=== PATIENT | male | born 1985 | race Hispanic/Latino ===

== ENCOUNTER 2022-07-03 09:55 | Emergency (ER) | payer OTHER ==
--- OUTSIDE RECORDS SUMMARY | 2022-07-03 09:59 | XMS REPORT | Continuity of Care Document ---
:1985 Author Organization [facility] t Address [address] [place] [address] Care Team Providers Name Role Phone BROWN JIMENEZ Primary Care Physician Unavailable RJ ARRIAGA Attending Clinician Unavailable NASRIN MACK Attending Clinician Unavailable EVERARDO BEE Attending Clinician Unavailable RJ ARRIAGA Admitting Clinician Unavailable EVERARDO BEE Admitting Clinician Unavailable Payers Payer Name Policy Type Policy Number Effective Date Expiration Date [facility] PPO [id number] Problems Condition Condition Condition Status Onset Resolution Last Treating Co mments Source Name Details Category Date Date Treatment Clinician Date No known No known Disease Metho di active active st problems problems Hospit a l Allergies, Adverse Reactions, Alerts Allergy Allergy Status Severity Reaction(s) Onset Inactive Treating Comm ents Source Name Type Date Date Clinician NO KNOWN Drug Active Univers ALLERGIE Class it[facility] of S [facility] Social History Social Habit Start Date Stop Date Quantity Comments Source History of Occasional tobacco Method ist tobacco use smoker Hospital Alcohol intake 2019-07-24 2019-07-24 Current drinker of [facility] 00:00:00 00:00:00 alcohol (finding) Hospita l Tobacco use and 2019-07-21 2019-07-21 Smokeless tobacco [facility] exposure 00:00:00 00:00:00 non-user Hospital Sex Assigned At [birth year] Scientologist 00:00:00 00:00:00 Hospital Smoking Status Start Date Stop Date Source Occasional tobacco smoker 2019-07-21 00:00:00 [facility] Medications Ordered Filled Start Stop Current Ordering Indication Dosage Frequency Signature Comments Components Source Medication Medication Date Date Medication? Clinician (SIG) Name Name fexofenadin 2018-08 Yes 180mg QD Take 180 M ethodi e (JADYN) 2-[address] 180 MG 16:50: mouth Hospita tablet 46 daily. l omeprazole 2018-08 Yes 20mg QD Take 20 mg M ethodi (PriLOSEC) 2-[address] 20 MG 16:50: daily. Hospita capsule 46 l amoxicillin 2018-08 Yes 1{tbl} Q.5D Take 1 [facility] -pot 2-[address] clavulanate 16:50: mouth 2 Hos cedric (AUGMENTIN) 46 (two) l 875-125 mg times a per tablet day. Procedures This patient has no known procedures. Encounters Start End Encounter Admission Attending Care Care Encounter Source Date/Time Date/Time Type Type Clinicians Facility Department ID 2021-01-17 2021-01-17 Outpatient R [facility] [id number] Univers 13:00:00 13:00:00 [facility] 2020-08-05 2020-08-05 Emergency X [facility] ERT [id number] Univers 06:17:00 07:26:00 RJ [facility] 2020-02-24 2020-02-24 [facility] [id number] Univers 17:00:00 17:00:00 NASRIN [facility] 2019-07-22 2019-07-22 [id number] [place] 00:00:00 00:00:00 EVERARDO [address] Results This patient has no known results.
[2022-07-03] MEDS ORDERED: KETOROLAC 30 MG/ML INJ ONE (10:28)
[2022-07-03] MEDS ORDERED: dexAMETHasone 10 MG/ML VIAL ONE (10:28)
[2022-07-03] MEDS ORDERED: HYDROCODONE/APAP 7.5/325 MG TAB ONE (10:28)
[2022-07-03] MEDS ORDERED: DIAZEPAM 5 MG TABLET ONE (10:28)
--- NOTE | 2022-07-03 11:00 | EDPHYS ---
Physician Documentation [facility] Name: Jose Adams Age: 37 yrs Sex: Male : 1985 Arrival Date: 07/03/2022 Time: 09:59 Bed 9 Private MD: ED Physician Camilo Andres HPI: 07/03 10:26 This 37 yrs old Male presents to ER via Ambulatory with complaints of Stiff kb Neck, Stiff Shoulder. 10:26 The patient or guardian complains of pain, that is acute, tenderness. The symptoms are kb located on the left posterior aspect of neck. Onset: The symptoms/episode began/occurred 2 day(s) ago, and became worse this morning. Context: The problem was sustained at home, The neck injury/problem resulted from from unknown cause. Associated signs and symptoms: The patient has no apparent associated signs or symptoms, The patient denies any alcohol use. The patient is not apparently intoxicated. No neurological symptoms were experienced by the patient prior to arrival in the emergency department. The pain radiates to the left arm. Modifying factors: The symptoms are alleviated by nothing. the symptoms are aggravated by movement, pressure. Severity of symptoms: At their worst the symptoms were moderate, in the emergency department the symptoms are unchanged. The patient has not experienced similar symptoms in the past. The patient has not recently seen a physician. Historical: - Allergies: 10:14 No Known Allergies; vg1 - Home Meds: 10:14 None [Active]; vg1 - PMHx: 10:14 None; vg1 - PSHx: 10:14 Rhinoplasty; vg1 - Immunization history:: Client reports having NOT received the Covid vaccine. - Social history:: Smoking status: Patient denies any tobacco usage or history of. ROS: 10:58 Constitutional: Negative for fever, chills, and weight loss. kb 10:58 Neck: Positive for pain with movement, pain at rest, tenderness. 10:58 All other systems are negative. Exam: 10:58 Constitutional: This is a well developed, well nourished patient who is awake, alert, kb and in no acute distress. Head/Face: Normocephalic, atraumatic. ENT: Moist Mucous membranes Cardiovascular: Regular rate and rhythm with a normal S1 and S2. No gallops, murmurs, or rubs. No pulse deficits. Respiratory: Respirations even and unlabored. No increased work of breathing. Talking in full sentences Abdomen/GI: Soft, non-tender. No distention Skin: Warm, dry with normal turgor. Normal color. MS/ Extremity: Pulses equal, no cyanosis. Neurovascular intact. Full, normal range of motion. Neuro: Awake and alert, GCS 15, oriented to person, place, time, and situation. Moves all extremities. Normal gait. Psych: Awake, alert, with orientation to person, place and time. Behavior, mood, and affect are within normal limits. 10:58 Neck: External neck: swelling, that is mild, of the left posterior aspect of neck, tenderness, that is moderate, of the left posterior aspect of neck, C-spine: appears grossly normal, ROM/movement: pain, that is severe, with any movement. Vital Signs: 10:13 BP 131 / 71; Pulse 56; Resp 20; Temp 97.9; Pulse Ox 99% ; Weight 89.81 kg; Height 5 ft. vg1 10 in. (177.80 cm); Pain 10/10; 10:13 Body Mass Index 28.41 (89.81 kg, 177.80 cm) vg1 MDM: 10:11 Patient medically screened. kb 10:28 Data reviewed: vital signs, nurses notes. Data interpreted: Pulse oximetry: on room air kb is 99 %. Interpretation: normal. Counseling: I had a detailed discussion with the patient and/or guardian regarding: the historical points, exam findings, and any diagnostic results supporting the discharge/admit diagnosis, the need for outpatient follow up, a family practitioner, to return to the emergency department if symptoms worsen or persist or if there are any questions or concerns that arise at home. Administered Medications: 10:37 Drug: Valium (diazepam) 5 mg Route: PO; ld1 10:38 Drug: Decadron (dexamethasone) 10 mg Route: IM; Site: left deltoid; ld1 10:38 Drug: [address] (HYDROcodone-acetaminophen) (7.5 mg-325 mg) 1 tabs Route: PO; ld1 10:38 Drug: Ketorolac 30 mg Route: IM; Site: right deltoid; ld1 Disposition: 11:42 PA/BIOMEDICAL ENGINEER's history reviewed, patient interviewed, and examined. I agree with assessment jr11 and care plan and confirm the diagnosis (es) above. Attestation: The patient's history, exam findings, diagnostics, and a summary of any interventions or procedures was reviewed in detail with Francisca GARCIA. Disposition Summary: 07/03/22 10:59 Discharge Ordered Location: Home kb Condition: Stable kb Diagnosis - Radiculopathy, cervical region kb Followup: kb - With: Private Physician - When: 2 - 3 days - Reason: Recheck today's complaints, Continuance of care, Re-evaluation by your physician Followup: kb - With: Emergency Department - When: As needed - Reason: Worsening of condition Discharge Instructions: - Discharge Summary Sheet kb - Cervical Radiculopathy, [id number] kb Forms: - Medication Reconciliation Form kb - Thank You Letter kb - Antibiotic Education kb - Prescription Opioid Use kb Prescriptions: - Cyclobenzaprine 10 mg Oral Tablet - take 1 tablet by ORAL route every 8 hours As needed; 15 tablet; Refills: 0, kb Product Selection Permitted - Diclofenac Sodium 75 mg Oral tablet,delayed release (DR/EC) - take 1 tablet by ORAL route 2 times per day As needed; 30 tablet; Refills: 0, kb Product Selection Permitted Signatures: Francisca Garcia FNP-C FNP-Shahla Burrell RN RN vg1 Tiffanie Garrido RN RN ld1 Camilo Andres MD MD jr11
--- NOTE | 2022-07-03 11:00 | ER ---
Nurse's Notes [facility] [address] Name: Jose Adams Age: 37 yrs Sex: Male : 1985 Arrival Date: 07/03/2022 Time: 09:59 Bed 9 Private MD: Diagnosis: Radiculopathy, cervical region Presentation: 07/03 10:13 Chief complaint: Patient states: Left sided neck pain that radiates to the Left arm x2 vg1 days that became worse this morning. Denies any injuries. Coronavirus screen: Vaccine status: Patient reports being unvaccinated. Client denies travel out of the [place] in the last 14 days. Ebola Screen: Patient negative for fever greater than or equal to 101.5 degrees Fahrenheit, and additional compatible Ebola Virus Disease symptoms. Initial Sepsis Screen: Does the patient meet any 2 criteria? No. Patient's initial sepsis screen is negative. Does the patient have a suspected source of infection? No. Patient's initial sepsis screen is negative. Risk Assessment: Do you want to hurt yourself or someone else? Patient reports no desire to harm self or others. Onset of symptoms was July 01, 2022. 10:13 Method Of Arrival: Ambulatory vg1 10:13 Acuity: PANKAJ 4 vg1 Triage Assessment: 10:14 General: Appears uncomfortable, Behavior is calm, cooperative. Pain: Complains of pain vg1 in neck Pain currently is 10 out of 10 on a pain scale. Neuro: Level of Consciousness is awake, alert, obeys commands, Oriented to person, place, time, situation. Historical: - Allergies: 10:14 No Known Allergies; vg1 - Home Meds: 10:14 None [Active]; vg1 - PMHx: 10:14 None; vg1 - PSHx: 10:14 Rhinoplasty; vg1 - Immunization history:: Client reports having NOT received the Covid vaccine. - Social history:: Smoking status: Patient denies any tobacco usage or history of. Screenin:40 Abuse screen: Denies threats or abuse. Denies injuries from another. Nutritional ld1 screening: No deficits noted. Tuberculosis screening: No symptoms or risk factors identified. Fall Risk None identified. Assessment: 10:40 General: Appears in no apparent distress. uncomfortable, Behavior is cooperative, ld1 appropriate for age. Pain: Complains of pain in posterior cervical area, left trapezius and right trapezius Pain does not radiate. Pain currently is 10 out of 10 on a pain scale. Quality of pain is described as squeezing, throbbing. Neuro: Level of Consciousness is awake, alert, obeys commands, Oriented to person, place, time, situation. Cardiovascular: Capillary refill < 3 seconds Patient's skin is warm and dry. Respiratory: Airway is patent Respiratory effort is even, unlabored. GI: Abdomen is flat, non-distended. : No signs and/or symptoms were reported regarding the genitourinary system. EENT: No signs and/or symptoms were reported regarding the EENT system. Derm: No signs and/or symptoms reported regarding the dermatologic system. Musculoskeletal: Reports pain in left trapezius and right trapezius. Vital Signs: 10:13 BP 131 / 71; Pulse 56; Resp 20; Temp 97.9; Pulse Ox 99% ; Weight 89.81 kg; Height 5 ft. vg1 10 in. (177.80 cm); Pain 10/10; 10:13 Body Mass Index 28.41 (89.81 kg, 177.80 cm) vg1 ED Course: 09:59 Patient arrived in ED. mr 10:02 Francisca Garcia FNP-C [facility]. kb 10:02 Camilo Andres MD is Attending Physician. kb 10:14 Triage completed. vg1 10:15 Arm band placed on. vg1 10:22 Tiffanie Garrido, MESHA is Primary Nurse. ld1 10:40 Patient has correct armband on for positive identification. Placed in gown. Bed in low ld1 position. Call light in reach. Side rails up X2. Pulse ox on. NIBP on. Door closed. Noise minimized. Warm blanket given. 10:40 No provider procedures requiring assistance completed. Patient did not have IV access ld1 during this emergency room visit. Administered Medications: 10:37 Drug: Valium (diazepam) 5 mg Route: PO; ld1 10:38 Drug: Decadron (dexamethasone) 10 mg Route: IM; Site: left deltoid; ld1 10:38 Drug: [place] (HYDROcodone-acetaminophen) (7.5 mg-325 mg) 1 tabs Route: PO; ld1 10:38 Drug: Ketorolac 30 mg Route: IM; Site: right deltoid; ld1 Medication: 10:40 VIS not applicable for this client. ld1 Outcome: 10:59 Discharge ordered by MD. berrios 11:21 Discharged to home ambulatory, with family. ld1 11:21 Condition: stable 11:21 Discharge instructions given to patient, family, Instructed on discharge instructions, follow up and referral plans. medication usage, Demonstrated understanding of instructions, follow-up care, medications, Prescriptions given X 2. 11:22 Patient left the ED. ld1 Signatures: Francisca Garcia, RADHA PUGH-Britt Feng Victoria, RN RN vg1 Tiffanie Garrido, RN RN ld1
[2022-07-03 11:28] VITALS: BP 131/71; TEMP 97.9; O2SAT 99
== END 2022-07-03 11:22 | disposition home or self-care (01) ==
LOC: ER 09:55
DX: M54.12 Radiculopathy, cervical region (principal)
CPT/HCPCS: 96372; 99283; J1100